=== PATIENT | female | born 1980 | race Caucasian/White ===

== ENCOUNTER 2016-11-29 05:14 | Emergency (ER) | payer SELFPAY ==
[~2016-11-29] VITALS: Ht 152.4 cm; Wt 53.9 kg
[~2016-11-29 05:14] MED LIST: LORTA5 PO
[2016-11-29 05:20] VITALS: BP 121/83; PULSE 90; RESP 14; TEMP 97.7; O2SAT 98
--- NOTE | 2016-11-29 06:18 | PD ---
HPI Chief Complaint: head injury Time Seen by Provider: 06:11 Travel History International Travel<30 days: No Contact w/Intl Traveler<30days: No Traveled to known affect area: No History of Present Illness HPI 36-year-old female presents to the emergency department by private transportation the care of her spouse after an unwitnessed slip and fall on Monday afternoon around 4 PM. Patient admits to drinking alcohol heavily on Monday to take away her myalgias arthralgias and headache post fall. Patient reportedly stated that she did not have loss of consciousness when she fell. Patient reportedly was housecleaning when she lost her balance and fell forward hitting her face on the dining room table and then hitting the back of her head. Patient also complains of low back pain and rib pain. Patient rates headache pain as moderate to severe. Patient's had nausea without vomiting. No balance disturbance. PFSH Past Medical History Narrative Medical Diverticulitis partial colectomy cholecystectomy alcoholism tobacco use hiatal hernia peptic ulcer disease ; nursing notes reviewed Blood Disorders: No Anxiety: No Depression: No Cancer: No Cardiovascular Problems: No Chemotherapy: No Diminished Hearing: No Diverticulitis: Yes (1998) Endocrine: No Gastrointestinal Disorders: Yes (DIVERTICULITIS) GERD: Yes Genitourinary: No Hiatal Hernia: Yes Immune Disorder: No Musculoskeletal: No Neurologic: No Psychiatric: No Reproductive: No Respiratory: No Immunizations Current: Yes Radiation Therapy: No Sickle Cell Disease: No Ulcer: Yes : 1 Para: 1 Miscarriage: 1 Past Surgical History Abdominal Surgery: Yes (diverticulitis ) AICD: No Arteriovenous Shunt: No Section: Yes (January 1998) Genitourinary Surgery: Yes (anal) Gynecologic Surgery: Yes () Insulin Pump: No Joint Replacement: No Pacemaker: No Other Surgery: Yes (ANAL SURGERY 2 YRS AGO.) Social History Alcohol Use: Yes (LITER OF VODKA A DAY) Tobacco Use: Yes (1PPD) Substance Use: No (MARIJUANA) Allergies-Medications (Allergen,Severity, Reaction): Coded Allergies: No Known Allergies (Verified , 11/29/16) Reported Meds & Prescriptions Reported Meds & Active Scripts Active Ultram (Tramadol HCl) 50 Mg Tab 50 Mg PO Q4H PRN Reported [place] (Hydrocodone-Acetaminophen) 5-325 mg Tab 1 Tab PO Q6H PRN Review of Systems Except as stated in HPI: all other systems reviewed are Neg Physical Exam Narrative GENERAL: Well-developed well-nourished female in no acute distress no respiratory distress GCS 15. SKIN: Warm and dry. HEAD: Atraumatic. Normocephalic. Mild skull soft tissue swelling right frontal scalp no abrasion no laceration no bony abnormality. EYES: Pupils equal and round. No scleral icterus. No injection or drainage. Extra ocular muscles intact. No periorbital rim crepitus or bony step-off. ENT: No nasal bleeding or discharge. Mucous membranes pink and moist. No hemotympanum. NECK: Trachea midline. No JVD. No midline tenderness to direct palpation along the cervical spine no bony step-off. CARDIOVASCULAR: Regular rate and rhythm. RESPIRATORY: No accessory muscle use. Clear to auscultation. Breath sounds equal bilaterally. GASTROINTESTINAL: Abdomen soft, non-tender, nondistended. Hepatic and splenic margins not palpable. MUSCULOSKELETAL: Extremities without clubbing, cyanosis, or edema. No obvious deformities. NEUROLOGICAL: Awake and alert. No obvious cranial nerve deficits. Motor grossly within normal limits. Five out of 5 muscle strength in the arms and legs. Normal speech. PSYCHIATRIC: Appropriate mood and affect; insight and judgment normal. Data Data Last Documented VS Vital Signs Date Time Temp Pulse Resp B/P Pulse Ox O2 Delivery O2 Flow Rate FiO2 11/29/16 08:30 88 118/67 98 11/29/16 05:20 97.[address] Brain W/O Iv Contrast(Rout) (11/29/16 ) Ct Cerv Spine W/O Contrast (11/29/16 ) Ct Facial Bones W/O Iv Cont (11/29/16 ) Chest, Single Ap (11/29/16 ) Ed Urine Pregnancytest Poc (11/29/16 06:11) Spine, Lumbar - Ltd (Ap & Lat) (11/29/16 ) Apply Cervical Collar (11/29/16 06:11) Collar [place] (11/29/16 ) [facility] Medical Decision Making Medical Screen Exam Complete: Yes Emergency Medical Condition: Yes Medical Record Reviewed: Yes Interpretation(s) Sipro-bb-aosy hCG: Negative cxr: nad per reading radiologist L/S spine xr: nabi per reading radiologist Differential Diagnosis Minor CHI, ICH, alcohol intoxication, seizure, mechanical fall, cervical spine sprain strain fracture cord compression, chest wall contusion rib fracture pneumothorax hemothorax, lumbar strain sprain compression fracture Narrative Course Patient with history of alcohol use with fall greater than 24 hours ago with persistent headache presents now for evaluation was sent for imaging studies; triage vital signs and normal range. At 7:50 AM plain films reveal no acute bony abnormality; CT cervical spine noncontrast and CT facial bones remain pending; imaging studies patient disposition signed over to oncoming physician; CT brain w/o: no acute abnormality Care signed over to Dr Fuller for pending CT's and patient disposition Diagnosis Primary Impression: Head injury, acute Qualified Code: S09.90XA - Head injury, acute, initial encounter Additional Impression: Alcohol abuse Scripts Tramadol (Ultram)50 Mg Tab50 Mg PO Q4H PRN (PAIN) #15 TAB Ref 0 Prov:Trayc Fuller MD 11/29/16 Zulema Bullock MD Nov 29, 2016 06:18
--- NOTE | 2016-11-29 06:39 | RADHPO ---
EXAM DATE/TIME: 11/29/2016 06:22 [facility] COMPARISON: No previous studies available for comparison. INDICATIONS : Lower back pain after falling MEDICAL HISTORY : Cholelithiasis. SURGICAL HISTORY : Cholecystectomy. ENCOUNTER: Initial ACUITY: 2 days PAIN SCORE: Non-responsive. LOCATION: lower back FINDINGS: Two view examination was performed. There are five non-rib bearing vertebral bodies. The vertebral bodies are in normal alignment without evidence of subluxation or scoliosis. The disc spaces are duy ntained. The pedicles are intact. Bony mineralization is normal. No fracture is identified. CONCLUSION: Normal examination for a patient of this age. Samuel Stock MD on November 29, 2016 at 6:37 Board Certified Radiologist. This report was verified electronically.
--- NOTE | 2016-11-29 06:39 | RADHPO ---
EXAM DATE/TIME: 11/29/2016 06:21 [facility] COMPARISON: CHEST PA & LAT, November 20, 2012, 19:32. INDICATIONS : Left side chest pain after falling MEDICAL HISTORY : Cholelithiasis. SURGICAL HISTORY : Cholecystectomy. ENCOUNTER: Initial ACUITY: 2 days PAIN SCORE: Non-responsive. LOCATION: Left chest FINDINGS: A single view of the chest demonstrates the lungs to be symmetrically aerated without evidence of mas s, infiltrate or effusion. The cardiomediastinal contours are unremarkable. Osseous structures are intact. CONCLUSION: Normal examination for a patient of this age. No significant change has occurred. Samuel Stock MD on November 29, 2016 at 6:37 Board Certified Radiologist. This report was verified electronically.
[2016-11-29] MEDS ORDERED: NORC5TAB PO (07:38)
--- NOTE | 2016-11-29 07:40 | RADHPO ---
EXAM DATE/TIME: 11/29/2016 07:13 [facility] COMPARISON: No previous studies available for comparison. INDICATIONS : Fell forward, hitting face on table, then fell back hitting head. RADIATION DOSE: 57.98 CTDIvol (mGy) MEDICAL HISTORY : None SURGICAL HISTORY : None. ENCOUNTER: Initial ACUITY: 2 days PAIN SCALE: 3/10 LOCATION: cranial TECHNIQUE: Multiple contiguous axial images were obtained of the head. Using automated exposure control and adj ustment of the mA and/or kV according to patient size, radiation dose was kept as low as reasonably a chievable to obtain optimal diagnostic quality images. FINDINGS: CEREBRUM: The ventricles are normal for age. No evidence of midline shift, mass lesion, hemorrhage or acute in farction. No extra-axial fluid collections are seen. POSTERIOR FOSSA: The cerebellum and brainstem are intact. The 4th ventricle is midline. The cerebellopontine angle i s unremarkable. EXTRACRANIAL: The visualized portion of the orbits is intact. SKULL: The calvaria is intact. No evidence of skull fracture. CONCLUSION: Normal examination. Willard Madrigal MD on November 29, 2016 at 7:37 Board Certified Radiologist. This report was verified electronically.
--- NOTE | 2016-11-29 08:06 | RADHPO ---
EXAM DATE/TIME: 11/29/2016 07:13 [facility] COMPARISON: No previous studies available for comparison. INDICATIONS : Fell forward, hitting face on table, then fell back hitting head. RADIATION DOSE: 25.48 CTDIvol (mGy) MEDICAL HISTORY : None SURGICAL HISTORY : None. ENCOUNTER: Initial ACUITY: 2 days PAIN SCORE: 3/10 LOCATION: facial TECHNIQUE: Volumetric scanning of the facial bones was performed. Using automated exposure control and adjustme nt of the mA and/or kV according to patient size, radiation dose was kept as low as reasonably achiev able to obtain optimal diagnostic quality images. FINDINGS: ORBITS: There appears to be a minimal fracture along the floor the left orbit without significant displacemen t. Extraocular muscles are intact. The retroconal structures have a normal configuration. No radiop aque foreign bodies are seen. NASAL BONE: The nasal bone and maxillary spine are intact ZYGOMATIC ARCHES: Symmetric without evidence of fracture. SINUSES: The maxillary, ethmoid and frontal sinuses are intact. Minimal disease left maxillary sinus. Ejnnifer b ullosa bilaterally slightly more prominent on the right. NASAL CAVITY: The nasal septum is intact and midline. The lacrimal ducts are intact. SOFT TISSUES: No radiopaque foreign bodies seen. There is soft-tissue swelling seen. INTRACRANIAL: No intracranial air seen. CRIBIFORM PLATE: Grossly intact. CONCLUSION: 1. Minimal fracture along the floor the left orbit without significant displacement. 2. No extraocular muscle impingement. 3. Facial and left periorbital soft tissue swelling. Willard Madrigal MD on November 29, 2016 at 7:57 Board Certified Radiologist. This report was verified electronically.
--- NOTE | 2016-11-29 08:08 | RADHPO ---
EXAM DATE/TIME: 11/29/2016 07:13 [facility] COMPARISON: No previous studies available for comparison. INDICATIONS : Fell forward, hitting face on table, then fell back hitting head. RADIATION DOSE: 24.91 CTDIvol (mGy) MEDICAL HISTORY : None SURGICAL HISTORY : None. ENCOUNTER: Initial ACUITY: 2 days PAIN SCALE: 3/10 LOCATION: neck TECHNIQUE: Volumetric scanning of the cervical spine was performed. Multiplanar reconstructions in the sagittal, coronal and oblique axial planes were performed. Using automated exposure control and adjustment o f the mA and/or kV according to patient size, radiation dose was kept as low as reasonably achievable to obtain optimal diagnostic quality images. FINDINGS: VERTEBRAE: Normal vertebral body height. Disc spaces are maintained. No canal stenosis. No disc herniation. ALIGNMENT: No evidence of subluxation. The facets are well aligned. CONCLUSION: No fracture or subluxation. Willard Madrigal MD on November 29, 2016 at 8:05 Board Certified Radiologist. This report was verified electronically.
[2016-11-29] MEDS ORDERED: ULTR50TA5 PO ×2 (08:24→08:41)
--- NOTE | 2016-11-29 08:24 | PD ---
Physical Exam Date Seen by Provider: Nov 29, 2016 Time Seen by Provider: 07:45 Narrative Patient signed out to me by Dr. Bullock, awaiting CAT scan. Last [address] 11/29/16 0000 Signed Impressions: Service Date/Time: Tuesday, November 29, 2016 07:13 - CONCLUSION: 1. Minimal fracture along the floor the left orbit without significant displacement. 2. No extraocular muscle impingement. 3. Facial and left periorbital soft tissue swelling. Willard Madrigal MD Lumbar Spine X-Ray 11/29/16 0000 Signed Impressions: Service Date/Time: Tuesday, November 29, 2016 06:22 - CONCLUSION: Normal examination for a patient of this age. Samuel Stock MD Head CT 11/29/16 0000 Signed Impressions: Service Date/Time: Tuesday, November 29, 2016 07:13 - CONCLUSION: Normal examination. Willard Madrigal MD Chest X-Ray 11/29/16 0000 Signed Impressions: Service Date/Time: Tuesday, November 29, 2016 06:21 - CONCLUSION: Normal examination for a patient of this age. No significant change has occurred. Samuel Stock MD Cervical Spine CT 11/29/16 0000 Signed Impressions: Service Date/Time: Tuesday, November 29, 2016 07:13 - CONCLUSION: No fracture or subluxation. Willard Madrigal MD X-rays and CT of the brain and neck did not reveal any signs of acute fractures or other acute injuries. Facial bone CT did show a nondisplaced small fracture in the left orbital floor. Patient has no extraocular movement abnormalities. At this point, my plan would be to release her with follow-up to craniofacial regarding this issue. She may have some underlying concussion considering symptoms and my plan would be also to have her follow-up with primary care doctor. Head injury instructions given. Return for any worsening in pain, vomiting, headaches, fevers, or new symptoms as needed. The plan has been discussed with the patient and she states understanding. Data Data Last Documented VS Vital Signs Date Time Temp Pulse Resp B/P Pulse Ox O2 Delivery O2 Flow Rate FiO2 11/29/16 05:20 97.7 90 14 121/[address] Brain W/O Iv Contrast(Rout) (11/29/16 ) Ct Cerv Spine W/O Contrast (11/29/16 ) Ct Facial Bones W/O Iv Cont (11/29/16 ) Chest, Single Ap (11/29/16 ) Ed Urine Pregnancytest Poc (11/29/16 06:11) Spine, Lumbar - Ltd (Ap & Lat) (11/29/16 ) Apply Cervical Collar (11/29/16 06:11) Collar [place] (11/29/16 ) MDM Medical Record Reviewed: Yes Supervised Visit with BUSTER: No Diagnosis Primary Impression: Head injury, acute Qualified Code: S09.90XA - Head injury, acute, initial encounter Additional Impressions: Alcohol abuse FRACTURE OF ORBITAL FLOOR, LEFT SIDE, INIT Referrals: Carlos Fotser DDS Med/Other Pt SpecificInfo: Prescription(s) given Scripts Tramadol (Ultram)50 Mg Tab50 Mg PO Q4H PRN (PAIN) #15 TAB Ref 0 Prov:Tracy Fuller MD 11/29/16 Disposition: 01 DISCHARGE HOME Condition: Stable Tracy Fuller MD Nov 29, 2016 08:24
[2016-11-29 08:30] VITALS: BP 118/67
== END 2016-11-29 08:31 | disposition home or self-care (01) ==
LOC: PHED 05:14
DX: S02.32XA Fracture of orbital floor, left side, initial encounter for closed fracture (principal); M54.5 Low back pain; R07.81 Pleurodynia; F10.10 Alcohol abuse, uncomplicated; W01.190A Fall on same level from slipping, tripping and stumbling with subsequent striking against furniture, initial encounter; Y93.E9 Activity, other interior property and clothing maintenance; Y92.001 Dining room of unspecified non-institutional (private) residence as the place of occurrence of the external cause
CPT/HCPCS: 70450; 70486; 71010; 72100; 72125; 84703; 99284; L0150

== ENCOUNTER 2017-11-28 20:24 | Emergency (ER) | payer SELFPAY ==
[~2017-11-28 20:24] MED LIST changes: -LORTA5 PO; +NORC5TAB PO; +TRAM50 PO
[2017-11-28 20:45] VITALS: BP 139/64; PULSE 84; RESP 20; TEMP 97.7; O2SAT 98
[2017-11-28 22:30] VITALS: BP 125/77; PULSE 84; RESP 20; O2SAT 98
[2017-11-28] MEDS ORDERED: NABU1TAB37 PO (23:08)
--- NOTE | 2017-11-28 23:09 | PD ---
HPI . Ear pain Chief Complaint: ENT Complaint Time Seen by Provider: 22:09 Travel History International Travel<30 days: No Contact w/Intl Traveler<30days: No Traveled to known affect area: No History of Present Illness HPI This patient presents with chief complaint of bilateral ear pain. Left is worse than right. She states that they feel plugged up. She states that her ear pain is now associated with blurred vision. She rates her pain at 10/10. She states that she has tried eardrops without relief of her pain. She admits to drinking about a liter of liquor a day. PFSH Past Medical History Blood Disorders: No Anxiety: No Depression: No Cancer: No Cardiovascular Problems: No Chemotherapy: No Diminished Hearing: No Diverticulitis: Yes (1998) Endocrine: No Gastrointestinal Disorders: Yes (DIVERTICULITIS) GERD: Yes Genitourinary: No Hiatal Hernia: Yes Immune Disorder: No Implanted Vascular Access Dvce: No Musculoskeletal: No Neurologic: No Psychiatric: No Reproductive: No Respiratory: No Immunizations Current: Yes Radiation Therapy: No Sickle Cell Disease: No Ulcer: Yes ?: Unknown LMP: 11 06 18 : 1 Para: 1 Miscarriage: 1 Past Surgical History Abdominal Surgery: Yes (DIVERTICULITIS) AICD: No Arteriovenous Shunt: No Section: Yes (January 1998) Cholecystectomy: Yes Genitourinary Surgery: Yes (ANAL) Gynecologic Surgery: Yes () Insulin Pump: No Joint Replacement: No Pacemaker: No Other Surgery: Yes (ANAL SURGERY 2 YRS AGO.) Social History Alcohol Use: Yes (LITER OF VODKA A DAY) Tobacco Use: Yes (1 PPD) Substance Use: No (MARIJUANA DAILY) Allergies-Medications (Allergen,Severity, Reaction): Coded Allergies: No Known Allergies (Verified , 11/29/16) Reported Meds & Prescriptions Reported Meds & Active Scripts Active Ultram (Tramadol HCl) 50 Mg Tab 50 Mg PO Q4H PRN Reported [place] (Hydrocodone-Acetaminophen) 5-325 mg Tab 1 Tab PO Q6H PRN Review of Systems Except as stated in HPI: all other systems reviewed are Neg Eyes: Positive: Blurred Vision HENT: Positive: Earache Physical Exam Narrative GENERAL: Awake and alert and in no acute distress. She smells of alcohol and is tremulous. She is a thin woman who appears older than her stated age of 37. SKIN: Warm and dry. HEAD: Normocephalic/atraumatic. EYES: Pupils are equal. Extraocular movements are intact. ENT: Left TM is obstructed by cerumen in the EAC. Right TM is shiny and grove with good light reflex. She has bilateral TMJ tenderness. NECK: Normal range of motion. CARDIOVASCULAR: Regular rate and rhythm. RESPIRATORY: Nonlabored respirations. MUSCULOSKELETAL: Atraumatic. NEUROLOGICAL: Nonfocal. PSYCHIATRIC: Appropriate mood and affect. Data Data Last Documented VS Vital Signs Date Time Temp Pulse Resp B/P (MAP) Pulse Ox O2 Delivery O2 Flow Rate FiO2 11/28/17 22:30 84 20 125/77 (93) 98 11/28/17 20:45 97.7 MDM Medical Decision Making Medical Screen Exam Complete: Yes Emergency Medical Condition: Yes Differential Diagnosis Differential diagnosis of ear pain includes eustachian tube dysfunction, otitis externa, otitis media, TMJ syndrome Narrative Course This patient presents with the chief complaint of bilateral ear pain. 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 Is also acutely intoxicated. Diagnosis Primary Impression: TMJ syndrome Patient Instructions: General Instructions Additional Instructions: Do not take [id number] ibuprofen while taking the prescription medication. Follow-up with a dentist. Med/Other Pt SpecificInfo: Prescription(s) given Scripts Nabumetone (Nabumetone) 500 Mg Tab 500 MG PO BID for Pain-Inflammation, #60 TAB 0 Refills Prov: Bonnie Orta MD 11/28/17 Disposition: 01 DISCHARGE HOME Condition: Stable Bonnie Orta MD Nov 28, 2017 23:08
[2017-11-28 23:44] VITALS: BP 122/70
== END 2017-11-28 23:46 | disposition home or self-care (01) ==
LOC: PHED 20:24
DX: M26.609 Unspecified temporomandibular joint disorder, unspecified side (principal); F17.200 Nicotine dependence, unspecified, uncomplicated
CPT/HCPCS: 99283